=== PATIENT | female | born 1955 | race Caucasian/White ===

== ENCOUNTER → 2017-11-19 | Outpatient (CLI) | payer BC ==
--- NOTE | 2017-11-19 17:47 | XR ---
EXAMINATION TYPE: XR knee complete bilateral DATE OF EXAM: 11/19/2017 COMPARISON: NONE HISTORY: Pain and swelling TECHNIQUE: 5 views FINDINGS: I see no fracture nor dislocation. Joint spaces are normal. There is normal alignment. Ther e is no sign of joint effusion. IMPRESSION: Negative bilateral knee exam.
== END | disposition home or self-care (01) ==
LOC: RADXRMAIN 16:02
PROVIDERS: ATTEND Family Medicine Sports Medicine
DX: M25.561 Pain in right knee (principal)

== ENCOUNTER → 2021-01-24 | Outpatient (CLI) | payer MEDICARE, BC ==
[2021-01-24 16:33] LABS: Hemoglobin A1C 5.8 % (4.0-6.0)
== END | disposition home or self-care (01) ==
LOC: LABWHC1 09:00
PROVIDERS: ATTEND Internal Medicine Endocrinology, Diabetes & Metabolism
DX: R73.01 Impaired fasting glucose (principal)
CPT/HCPCS: 36415; 82043; 82570; 83036

== ENCOUNTER → 2021-02-06 | Outpatient (CLI) | payer MEDICARE, BC ==
[2021-02-06 12:23] LABS: African American GFR (CKD) 110.9 (60.0-200.0); Albumin 4.3 g/dL (3.80-4.90); Albumin/Globulin Ratio 1.95 (1.60-3.17); Anion Gap 5.6 mmol/L (4.00-12.00); BUN/Creat Ratio 26.67 Ratio (12.00-20.00); Calcium 8.4 mg/dL (8.7-10.3); Carbon Dioxide 24.4 mmol/L (21.6-31.8); Chol/HDL Ratio 4.82; Globulin 2.2 g/dL (1.6-3.3); LDL Cholesterol,Calculated 165.6 mg/dL (0.0-131.0); Non-African American GFR(CKD) 95.7 (60.0-200.0); Potassium 4.3 mmol/L (3.5-5.5); Total Protein 6.5 g/dL (6.2-8.2); VLDL Calculation 25.4 mg/dL (5.00-40.00)
[2021-02-06 12:32] LABS: T4, Free (Free Thyroxine) 1.3 ng/dL (0.80-1.80)
== END | disposition home or self-care (01) ==
LOC: LABWHC1 07:34
PROVIDERS: ATTEND Internal Medicine Endocrinology, Diabetes & Metabolism
DX: E55.9 Vitamin D deficiency, unspecified (principal); R73.01 Impaired fasting glucose; E78.2 Mixed hyperlipidemia; E03.9 Hypothyroidism, unspecified
CPT/HCPCS: 36415; 80053; 80061; 82306; 84439; 84443

== ENCOUNTER → 2021-02-21 | Outpatient (CLI) | payer MEDICARE, BC ==
--- NOTE | 2021-02-22 11:59 | P.ARTDOP ---
Arterial Doppler LOWER EXTREMITY ARTERIAL DOPPLER: DATE OF SERVICE: 02/21/2021 Reason for study: Bilateral leg pain. Doppler waveforms: Multiphasic bilaterally throughout. Pulse volume recording: []. Pressure gradients: None. Ankle-brachial indices: Greater than 1 bilaterally. Toe brachial indices: Greater than 1 bilaterally Impression: Normal study.
== END | disposition home or self-care (01) ==
LOC: RADUSWWP 13:37
PROVIDERS: ATTEND Family Medicine Sports Medicine
DX: M79.605 Pain in left leg (principal); M79.604 Pain in right leg; R25.2 Cramp and spasm
CPT/HCPCS: 93922

== ENCOUNTER → 2025-01-04 | Outpatient (CLI) | payer MEDICARE, OTHER | END | disposition home or self-care (01) | LOC: LABWHC1 11:10 | PROVIDERS: ATTEND Internal Medicine Endocrinology, Diabetes & Metabolism | DX: D64.9 Anemia, unspecified (principal) | CPT/HCPCS: 36415; 82607 ==